=== PATIENT | male | born 1965 | race Caucasian/White ===

== ENCOUNTER 2018-02-06 06:07 | Day surgery (SDC) | payer OTHER ==
[2018-02-05 12:53] VITALS: BMI 20.2
--- NOTE | 2018-02-05 19:49 | HP ---
DATE OF ADMISSION: DATE OF SURGERY: 02/06/2018 ADMITTING DIAGNOSIS: Chronic pansinusitis with polyposis, obstructive sleep apnea. HISTORY OF PRESENT ILLNESS: This 53-year-old gentleman has had a long history of chronic sinus problems. He had chronic sinusitis with polyposis and had endoscopic sinus surgery on 10/18/2005. He did well until recently, when he developed recurrent symptoms. Presently, he is complaining of complete obstruction to breathing, worse on the left side. This began following an upper respiratory infection in June, and then in August of 2017 there was nasal drainage. Examination demonstrates significant polyposis, worse on the left side, chronic pansinusitis is seen, and he is now admitted for endoscopic sinus surgery. PAST MEDICAL HISTORY: Primary medical doctor is Dr. Jonnathan Coates. Patient has a history of sleep apnea as indicated above. PRESENT MEDICATIONS: Include fluticasone nasal spray and he also has had recent oral methylprednisolone. ALLERGIES TO MEDICATIONS: None known. He does not smoke. He has had previous sinus surgery without prior trouble. There is no other abnormal bleeding. PHYSICAL EXAMINATION: General: Patient is well developed male, in no distress . HEENT: Head is normal. Eyes are clear. Ears are unremarkable. The oral cavity and oropharynx are unremarkable. Patient had nasal endoscopy showing deviation of the septum, dense mucosa, and small polyps on the right, and a very large obstructing polyp on the left. There are polyps in the middle meati and ethmoid sinuses. There is also a polyp in the posterior choana, and sphenoethmoid recess on the left side. CT scan of paranasal sinuses performed at [facility] on December 29, 2017, shows some postoperative changes affecting the right middle turbinate. There is mild deviation to the left. Left maxillary antrum is partially opacified and so is the right. The ethmoid air cells are partially opacified as well as the sphenoid sinuses, with obstruction of the sphenoethmoid recesses. There is mild mucosal thickening in the frontal sinuses. IMPRESSION: Chronic pansinusitis with polyposis and obstruction. PLAN: Endoscopic sinus surgery to address ethmoid maxillary frontal and sphenoid sinuses under general anesthesia. INFORMED CONSENT: Patient understands the indications, alternatives, nature of risks and benefits of proposed surgery. Potential complications including but not limited to anesthesia, bleeding, infection, recurrence, numbness, reduced sense of smell , eye injury and brain injury discussed in detail. He understands and accepts these risks and wishes to proceed with surgery. Questions were answered fully. TALISHA SCHREIBER M.D. [id number] MTDD
[2018-02-06] MEDS ORDERED: BACITRACIN 15 GM TUBE TOPICAL OINTMENT ONE (07:35)
[2018-02-06] MEDS ORDERED: ROCURONIUM BROMIDE 50 MG/5 ML VIAL ONE ×2 (07:45)
[2018-02-06] MEDS ORDERED: MIDAZOLAM HCL 2 MG/2 ML SINGLE DOSE VIAL ONE (07:45)
[2018-02-06] MEDS ORDERED: fentaNYL CITRATE 250 MCG/5 ML VIAL ONE (07:45)
--- NOTE | 2018-02-06 07:55 | HP ---
History & Physical Update - History History: No Change - Physical Physical: No Change - Assessment Assessment: No Change - Plan Plan: No Change
[2018-02-06] MEDS ORDERED: COCAINE HCL 4% TOPICAL SOLUTION 4 ML BOTTLE TP ONE ×3 (08:04→08:39)
[2018-02-06] MEDS ORDERED: ceFAZolin SODIUM 1 GM VIAL IVPB ONE (08:31)
[2018-02-06] MEDS ORDERED: NEOSTIGMINE METHYLSULFATE 0.5 MG/ML - 10 ML MDV ONE (09:49)
--- NOTE | 2018-02-06 09:54 | OP ---
Operative Note - Note: Operative Date: 02/06/18 ([id number]) Pre-Operative Diagnosis: chronic pansinusitis with polyps, synechia left Operation: bilateral endoscopic: 1)ethmoidectomy, ant/post, 2)maxillary antrostomy with removal of tissue, 3)frontal sinus exploration, 4)sphenoidotomy , 5) left excision of large synechiae, 6) image guidance Findings: chronic polypoid sinusitis obstruction sphenoethmoid and frontoethmoid recesses large synechia left septum to inferior turbinate/lateral nasal wall Post-Operative Diagnosis: Same as Pre-op Surgeon: Cornell Gallagher Anesthesiologist/TOPOGRAPHY TECHNICIAN: Cornell Verduzco Anesthesia: General Estimated Blood Loss (mls): 25 Operative Report Dictated: Yes
[2018-02-06] MEDS ORDERED: oxyCODONE HCL 5 MG TABLET PO PRN ×2 (10:01→10:10)
[2018-02-06] MEDS ORDERED: TRIMETHOBENZAMIDE HCL 200MG/2ML INJ IM PRN (10:01)
[2018-02-06] MEDS ORDERED: PROMETHAZINE HCL 25 MG/1 ML VIAL IVPUSH PRN (10:10)
[2018-02-06] MEDS ORDERED: ONDANSETRON 4 MG/2 ML VIAL IVPUSH PRN (10:10)
[2018-02-06] MEDS ORDERED: LACTATED RINGERS SOLUTION 1,000 ML IV SCH (10:15)
[2018-02-06] MEDS ORDERED: ONDANSETRON 4 MG/2 ML VIAL IVPUSH ONE (10:38)
[2018-02-06] MEDS ORDERED: PROMETHAZINE HCL 25 MG/1 ML VIAL IVPUSH ONE (11:00)
--- NOTE | 2018-02-06 12:22 | OP ---
DATE OF OPERATION: 02/06/2018 PREOPERATIVE DIAGNOSIS: Chronic pansinusitis with polyps; synechia, left nasal cavity. POSTOPERATIVE DIAGNOSIS: Chronic pansinusitis with polyps; synechia, left nasal cavity. PROCEDURE: 1. Bilateral endoscopic ethmoidectomy, anterior and posterior. 2. Bilateral endoscopic maxillary antrostomy with removal of tissue. 3. Bilateral frontal sinus exploration. 4. Bilateral endoscopic sphenoidotomy. 5. Endoscopic excision of left nasal synechia. 6. Image guidance. SURGEON: Talisha Gallagher MD ANESTHESIOLOGIST: Talisha Verduzco MD/Louis Tobar CRNA ANESTHESIA: General via endotracheal tube. INDICATIONS: This is a 53-year-old gentleman who has had a long history of chronic sinusitis. He underwent previous sinus surgery many years ago with success; however, he has recently developed recurrent symptoms. He was found to have obstructing nasal polyps, left greater than right, as well as large synechia of the left nasal cavity. CT scan demonstrates chronic polypoid pansinusitis. He is now presenting for treatment. FINDINGS: Chronic sinusitis with polyps, left greater than right; obstructed sphenoethmoid recesses, obstructed frontoethmoid recesses with polyps. Large synechia, left nasal cavity. DESCRIPTION OF PROCEDURE: Patient was brought to the operating room and placed on the operating table in supine position. General endotracheal anesthesia was induced to a satisfactory level. He was prepped and draped in the usual fashion for surgery. CT scan data was utilized with the [employer] navigation system. The patient was registered and image guidance was used throughout the case to identify landmarks and guide surgical dissection. The nasal cavities were packed with cocaine 4% topically. After adequate time, these were removed. Nasal endoscopy was performed with a 0-degree telescope. The right nasal cavity was a bit narrowed. The ethmoid bed had polyps. There was obstruction of the other sinus drainage pathways. The nasopharynx had mild swelling, but no lesion. The left nasal cavity was then examined. There was a large synechia between the nasal septum and the inferior turbinate and portion of the lateral nasal wall. There was significant hypervascularity consistent with chronic inflammation in this area. Behind this, both superiorly and posteriorly, were multiple polyps with obstruction. Lidocaine 1% with epinephrine 1:200,000 epinephrine was infiltrated into the area of the synechia as well as the lateral nasal wall and the nasal septum. It was also infiltrated on the right side of the lateral nasal wall. Additional cocaine 4% was packed. The right paranasal sinuses were first addressed. The packing was removed. Polyps within the ethmoid sinus were removed utilizing the forceps and the [employer] microdebrider. Especially posteriorly there was obstruction. Image guidance was used and the lamina papyracea and fovea ethmoidalis were preserved. The sphenoethmoid recess was dissected and polypoid tissue was removed. Sphenoidotomy was recreated, and there was no lesion within the sphenoid. Attention was then turned towards the right maxillary sinus. The maxillary antrostomy was enlarged and tissue was removed. There were no irreversible lesions remaining. Finally, the right frontoethmoid recess was visualized with the 70-degree telescope. The polypoid tissue was removed with the upbiting and giraffe forceps. The frontal ostium was identified and appeared clear, and its identity was confirmed with the image guidance. Attention was then turned toward the left paranasal sinuses. The large synechia was first addressed. Because of its breadth, the [employer] microdebrider was used to carefully bring this down. Most of it was polypoid in nature, though there were a few dense areas, but it is estimated that it was at least 1.5 cm in vertical dimension and perhaps 1.5-2 cm in an anterior to posterior direction. Once this was cleared, marked improvement in the airway was noted, and full access to the ethmoid sinus was achieved. Polyps were then removed from the ethmoid sinus utilizing the upbiting forceps as well as [employer] microdebrider, again with guidance. The lamina papyracea and the fovea ethmoidalis were preserved. The sphenoethmoid recess was approached. Polypoid tissue was removed. The sphenoidotomy was enlarged with the microdebrider. Next, attention was turned toward the left maxillary sinus. This was partially obstructed with polypoid tissue which was removed. Additional polypoid tissue especially in the posteromedial sinus was removed with forceps. Finally, attention was turned toward the left frontal recess. Polypoid tissue was removed as well as some bony disease utilizing the giraffe forceps and the 70-degree telescope. The frontal ostium was exposed and appeared patent, and its identity was also confirmed with the navigation system. Final inspection demonstrated open frontal ostia, open maxillary sinuses, and open sphenoidotomies as well as no further polyps. There was improvement in the airway, especially on the left side. Suction cauterization was then utilized to control any remaining oozing. Nasopore dressings were placed in the ethmoid cavities and additional Nasopore was placed along the area of the synechia to minimize recurrence. Because of some oozing, some additional Telfa was placed in the inferior left nasal cavity. Patient tolerated the procedure well. He was then awakened from general anesthesia and transferred to the PACU in stable condition. Estimated blood loss was 25 mL. He received crystalloid during the procedure. Specimens include right ethmoid and maxillary tissue and left ethmoid maxillary tissue which was sent to pathology for routine studies. There were no complications. TALISHA GALLAGHER M.D. [id number]
[2018-02-06] MEDS: LACTATED RINGERS SOLUTION 1,000 ML IV SCH ×2 (20:30→21:24)
--- NOTE | 2018-02-07 08:25 | PN ---
Progress Note (short form) - Note Progress Note: ENT POD 1 s/p endoscopic sinus surgery overnight observation for obstructive sleep apnea syndrome had postop voiting, now well OOB, no pain or nausea VSS PE NAD eyes WNL nose: no bleeding left telfa pack removed oropharynx no bleeding Impression: doing well s/p endoscopic sinus surgery Plan: discharge home today pt ahs pain meds and antibiotics for home use already nasal saline spray daily to office next week for postop care Cornell Gallagher MD FACS
[2018-02-07 08:57] VITALS: BP 144/88; PULSE 61; TEMP 97.8
== END 2018-02-07 09:15 | disposition home or self-care (01) ==
LOC: JASUSAT 06:07 → J5S 14:25 → JASUSAT 02-07 09:15
PROVIDERS: ATTEND Otolaryngology
PROC: 09BU8ZZ Excision of Right Ethmoid Sinus, Via Natural or Artificial Opening Endoscopic (ICD-10-PCS; 2018-02-06)
PROC: 099R8ZZ Drainage of Left Maxillary Sinus, Via Natural or Artificial Opening Endoscopic (ICD-10-PCS; 2018-02-06)
PROC: 099Q8ZZ Drainage of Right Maxillary Sinus, Via Natural or Artificial Opening Endoscopic (ICD-10-PCS; 2018-02-06)
PROC: 09CX8ZZ Extirpation of Matter from Left Sphenoid Sinus, Via Natural or Artificial Opening Endoscopic (ICD-10-PCS; 2018-02-06)
PROC: 09CW8ZZ Extirpation of Matter from Right Sphenoid Sinus, Via Natural or Artificial Opening Endoscopic (ICD-10-PCS; 2018-02-06)
PROC: 09BK8ZX Excision of Nasal Mucosa and Soft Tissue, Via Natural or Artificial Opening Endoscopic, Diagnostic (ICD-10-PCS; 2018-02-06)
PROC: 09BV8ZZ Excision of Left Ethmoid Sinus, Via Natural or Artificial Opening Endoscopic (ICD-10-PCS; principal; 2018-02-06 08:00)
DX: J32.4 Chronic pansinusitis (principal); J33.8 Other polyp of sinus; J34.89 Other specified disorders of nose and nasal sinuses
CPT/HCPCS: 88304-TC; 88311-TC; 94760

== ENCOUNTER 2023-01-06 13:35 | Inpatient (IN) | payer OTHER ==
[2023-01-06 13:49] VITALS: BMI 32.7
[2023-01-06 14:52] LABS: BASO % 0.6 % (0-2.0); EOS % 1.1 % (0-4.5); HEMATOCRIT 49.4 % (35.4-49); HEMOGLOBIN 16.3 GM/dL (11.7-16.9); LYMPH % 19.6 % (8-40); MCH 28.6 pg (25.7-33.7); MEAN CELL VOLUME 86.8 fl (80-96); MEAN PLT VOLUME 9.5 fl (7.5-11.1); MONO % 6.4 % (3.8-10.2); NEUT % 72.3 % (42.8-82.8); PLATELET COUNT 277 10^3/uL (134-434); RDW 13.2 % (11.9-15.9); WHITE BLOOD COUNT 11.4 K/mm3 (4.0-10.0)
[2023-01-06 14:59] LABS: INR 1.05 (0.83-1.09); PROTHROMBIN TIME (PATIENT) 12.2 SEC (9.7-13.0)
[2023-01-06 15:02] LABS: ACTIVATED PTT 26.4 SECONDS (25.2-36.5)
[2023-01-06 15:19] LABS: CHLORIDE 102 mmol/L (98-107); POTASSIUM 4.7 mmol/L (3.5-5.1); SODIUM 139 mmol/L (136-145)
[2023-01-06 15:20] LABS: CALCIUM 9.4 mg/dL (8.5-10.1)
[2023-01-06 15:21] LABS: ALBUMIN 3.8 g/dl (3.4-5.0); ANION GAP 12 MMOL/L (8-16); BLOOD UREA NITROGEN 17.3 mg/dL (7-18); CO2 25 mmol/L (21-32)
[2023-01-06 15:25] LABS: CREATININE 1.2 mg/dL (0.55-1.3); SGOT/AST 29 U/L (15-37); SGPT/ALT 28 U/L (13-61)
[2023-01-06 15:26] LABS: BILIRUBIN,TOTAL 0.6 mg/dL (0.2-1); TOT PROT 7.6 g/dl (6.4-8.2)
[2023-01-06 15:27] LABS: ALK PHOS 113 U/L (45-117); GLUCOSE,RANDOM 428 mg/dL (74-106); LACTIC ACID 2.9 mmol/L (0.4-2.0)
[2023-01-06] MEDS ORDERED: ONDANSETRON 4 MG TABLET PO ONE (15:28)
[2023-01-06] MEDS ORDERED: ONDANSETRON 4 MG/2 ML VIAL IVPUSH ONE (15:30)
[2023-01-06] MEDS ORDERED: ONDANSETRON 4 MG/2 ML VIAL ONE (15:41)
[2023-01-06] MEDS ORDERED: LACTATED RINGERS SOLUTION 1000 ML INFUS.BAG IV ONE (16:00)
[2023-01-06] MEDS ORDERED: LABETALOL HCL 5 MG/1 ML (100MG/20 ML VIAL) IVPUSH ONE (16:03)
[2023-01-06] MEDS ORDERED: LABETALOL HCL 100 MG TABLET (FP) ONE (16:05)
[2023-01-06] MEDS ORDERED: LABETALOL HCL 20 MG/4 ML VIAL ONE (16:06)
[2023-01-06] MEDS ORDERED: PANTOPRAZOLE SODIUM 40 MG VIAL IVPUSH ONE (16:06)
[2023-01-06] MEDS ORDERED: PANTOPRAZOLE SODIUM 40 MG VIAL ONE (16:17)
[2023-01-06 16:31] LABS: VENOUS BASE EXCESS -3.5 mmol/L (-2-2); VENOUS O2 SATURATION 84.9 % (70-80); VENOUS PCO2 41.3 mmHg (38-52); VENOUS PH 7.345 (7.310-7.410)
[2023-01-06] MEDS ORDERED: hydrALAZINE HCL 20 MG/ML VIAL IVPUSH ONE (16:44)
[2023-01-06] MEDS ORDERED: amLODIPine BESYLATE 5 MG TABLET (FP) PO SCH (16:45)
[2023-01-06] MEDS ORDERED: hydrALAZINE HCL 20 MG/ML VIAL ONE (16:52)
[2023-01-06] MEDS ORDERED: amLODIPine BESYLATE 5 MG TABLET (FP) ONE (16:52)
[2023-01-06] MEDS ORDERED: PANTOPRAZOLE SODIUM 40 MG VIAL IVPUSH SCH (17:00)
[2023-01-06] MEDS: LACTATED RINGERS SOLUTION 1,000 ML/1,000 ML INFUS.BAG IV SCH (17:10)
[2023-01-06 17:54] LABS: LACTIC ACID 4.6 mmol/L (0.4-2.0)
[2023-01-06] MEDS ORDERED: hydrALAZINE HCL 20 MG/ML VIAL IVPUSH PRN ×2 (19:00→20:00)
[2023-01-06] MEDS: ONDANSETRON 4 MG/2 ML VIAL IVPUSH PRN (19:58)
[2023-01-06] MEDS: INSULIN SLIDING SCALE (NOVOLOG) 1 VIAL SQ SCH ×2 (20:50→22:02)
[2023-01-06] MEDS: amLODIPine BESYLATE 5 MG TABLET (FP) PO SCH (20:51)
[2023-01-06 21:30] LABS: URINE APPEARANCE CLEAR; URINE COLOR YELLOW
[2023-01-06 21:31] LABS: URINE BILIRUBIN NEGATIVE (NEGATIVE); URINE GLUCOSE (UA) 4+ (NEGATIVE); URINE KETONE 1+ (NEGATIVE); URINE NITRITE NEGATIVE (NEGATIVE); URINE PROTEIN NEGATIVE (NEGATIVE); URINE UROBILINOGEN 0.2 mg/dL (0.2-1.0)
[2023-01-06 21:32] LABS: URINE LEUK ESTERASE NEGATIVE (NEGATIVE)
[2023-01-06] MEDS ORDERED: INSULIN SLIDING SCALE (NOVOLOG) 1 VIAL SQ SCH ×2 (22:00)
[2023-01-06 22:43] LABS: CHOLESTEROL 189 mg/dL (50-200)
[2023-01-06 22:44] LABS: LDL CHOLESTEROL (ONLY SJRH) 119 mg/dL (5-100)
[2023-01-06 22:47] LABS: HDL CHOLESTEROL 38 mg/dL (40-60)
[2023-01-07] MEDS: INSULIN SLIDING SCALE (NOVOLOG) 1 VIAL SQ SCH ×6 (00:33→20:28)
[2023-01-07] MEDS ORDERED: INSULIN REGULAR HUMAN 100 UNITS/ML *VIAL IVPUSH ONE ×2 (00:39→02:00)
[2023-01-07] MEDS: LACTATED RINGERS SOLUTION 1,000 ML/1,000 ML INFUS.BAG IV SCH (03:27)
[2023-01-07 03:53] LABS: LACTIC ACID 4.2 mmol/L (0.4-2.0)
[2023-01-07] MEDS ORDERED: LACTATED RINGERS SOLUTION 1000 ML INFUS.BAG IV ONE (03:59)
[2023-01-07] MEDS ORDERED: INSULIN (NOVOLOG) ASPART 100 UNITS/ML 10ML VIAL SQ ONE (04:02)
[2023-01-07] MEDS: INSULIN (LEVEMIR) 100 UNITS/ML UNITS SQ SCH (06:27)
[2023-01-07] MEDS ORDERED: INSULIN (LEVEMIR) 100 UNITS/ML UNITS SQ SCH (07:00)
[2023-01-07 08:01] LABS: BASO % 0.2 % (0-2.0); HEMATOCRIT 40.4 % (35.4-49); HEMOGLOBIN 13.6 GM/dL (11.7-16.9); LYMPH % 10.2 % (8-40); MCH 29.2 pg (25.7-33.7); MCHC 33.7 g/dl (32.0-35.9); MEAN CELL VOLUME 86.8 fl (80-96); MEAN PLT VOLUME 9.9 fl (7.5-11.1); MONO % 7.9 % (3.8-10.2); NEUT % 81.7 % (42.8-82.8); PLATELET COUNT 253 10^3/uL (134-434); RBC 4.65 M/mm3 (4.00-5.60); RDW 13.1 % (11.9-15.9); WHITE BLOOD COUNT 15.9 K/mm3 (4.0-10.0)
[2023-01-07 08:18] LABS: POTASSIUM 3.6 mmol/L (3.5-5.1)
[2023-01-07 08:20] LABS: CALCIUM 9.2 mg/dL (8.5-10.1)
[2023-01-07 08:24] LABS: CREATININE 1.6 mg/dL (0.55-1.3)
[2023-01-07] MEDS: amLODIPine BESYLATE 5 MG TABLET (FP) PO SCH (09:26)
[2023-01-07] MEDS ORDERED: PANTOPRAZOLE SODIUM 40 MG VIAL IVPUSH SCH ×2 (10:00)
[2023-01-07] MEDS: SODIUM CHLORIDE 1,000 ML IV SCH (17:59)
[2023-01-07 18:13] LABS: COCAINE, UR NEGATIVE (NEGATIVE); METHADONE, UR NEGATIVE (NEGATIVE); OPIATES, URI NEGATIVE (NEGATIVE); PHENCYCLIDINE,URINE NEGATIVE (NEGATIVE); URINE AMPHETAMINES NEGATIVE (NEGATIVE); URINE BARBITURATES NEGATIVE (NEGATIVE)
[2023-01-07 18:18] LABS: URINE BENZODIAZEPINES NEGATIVE (NEGATIVE)
[2023-01-07 19:17] LABS: BASO % 0.4 % (0-2.0); EOS % 0.2 % (0-4.5); HEMATOCRIT 41.1 % (35.4-49); HEMOGLOBIN 13.5 GM/dL (11.7-16.9); LYMPH % 11.2 % (8-40); MCH 28.7 pg (25.7-33.7); MCHC 32.9 g/dl (32.0-35.9); MEAN CELL VOLUME 87.3 fl (80-96); MEAN PLT VOLUME 9.3 fl (7.5-11.1); MONO % 5.7 % (3.8-10.2); NEUT % 82.5 % (42.8-82.8); PLATELET COUNT 235 10^3/uL (134-434); RBC 4.71 M/mm3 (4.00-5.60); RDW 13.1 % (11.9-15.9); WHITE BLOOD COUNT 17.1 K/mm3 (4.0-10.0)
[2023-01-08] MEDS: INSULIN SLIDING SCALE (NOVOLOG) 1 VIAL SQ SCH ×6 (01:21→21:33)
[2023-01-08] MEDS: SIMETHICONE 80 MG TAB.CHEW (FP) PO PRN ×4 (02:55→19:41)
[2023-01-08] MEDS: ACETAMINOPHEN 1000 MG/100 ML BAG IVPB PRN ×2 (02:56→05:52)
[2023-01-08] MEDS: INSULIN (LEVEMIR) 100 UNITS/ML UNITS SQ SCH ×2 (06:04→21:32)
[2023-01-08 07:30] LABS: BASO % 0.3 % (0-2.0); EOS % 0.3 % (0-4.5); HEMATOCRIT 39.9 % (35.4-49); HEMOGLOBIN 13.4 GM/dL (11.7-16.9); LYMPH % 13.2 % (8-40); MCH 29.3 pg (25.7-33.7); MCHC 33.6 g/dl (32.0-35.9); MEAN CELL VOLUME 87.1 fl (80-96); MEAN PLT VOLUME 9.8 fl (7.5-11.1); MONO % 6.2 % (3.8-10.2); PLATELET COUNT 207 10^3/uL (134-434); RBC 4.58 M/mm3 (4.00-5.60); WHITE BLOOD COUNT 13.5 K/mm3 (4.0-10.0)
[2023-01-08 07:46] LABS: POTASSIUM 3.6 mmol/L (3.5-5.1)
[2023-01-08 07:58] LABS: CALCIUM 8.6 mg/dL (8.5-10.1)
[2023-01-08 07:59] LABS: BLOOD UREA NITROGEN 26.9 mg/dL (7-18)
[2023-01-08 08:01] LABS: BILIRUBIN,TOTAL 0.5 mg/dL (0.2-1)
[2023-01-08] MEDS: amLODIPine BESYLATE 5 MG TABLET (FP) PO SCH ×2 (08:57→09:02)
[2023-01-08] MEDS: SODIUM CHLORIDE 1,000 ML IV SCH (08:57)
[2023-01-08] MEDS: LISINOPRIL 20 MG TABLET PO SCH ×2 (08:57→09:02)
[2023-01-08] MEDS: FAMOTIDINE 10 MG TABLET PO SCH (09:15)
[2023-01-08] MEDS ORDERED: LISINOPRIL 5 MG TABLET PO SCH (10:00)
[2023-01-08] MEDS ORDERED: MAG HYDROX/AL HYDROX/SIMETH 30 ML UNIT-DOSE CUP PO ONE (18:03)
[2023-01-09] MEDS: ONDANSETRON 4 MG/2 ML VIAL IVPUSH PRN (00:45)
[2023-01-09] MEDS ORDERED: MAG HYDROX/AL HYDROX/SIMETH 30 ML UNIT-DOSE CUP PO ONE (02:07)
[2023-01-09] MEDS ORDERED: METOCLOPRAMIDE HCL INJECTION 10 MG/2 ML VIAL IVPUSH ONE (02:07)
[2023-01-09] MEDS: INSULIN (LEVEMIR) 100 UNITS/ML UNITS SQ SCH ×2 (06:03→22:01)
[2023-01-09] MEDS: INSULIN SLIDING SCALE (NOVOLOG) 1 VIAL SQ SCH ×4 (06:04→22:00)
[2023-01-09] MEDS: SIMETHICONE 80 MG TAB.CHEW (FP) PO PRN ×3 (06:05→20:28)
[2023-01-09 08:42] LABS: HEMATOCRIT 41.1 % (35.4-49); MCH 29.2 pg (25.7-33.7); MEAN CELL VOLUME 85.8 fl (80-96); RBC 4.79 M/mm3 (4.00-5.60); RDW 13.3 % (11.9-15.9); WHITE BLOOD COUNT 13.1 K/mm3 (4.0-10.0)
[2023-01-09 08:44] LABS: MEAN PLT VOLUME 9.9 fl (7.5-11.1); PLATELET COUNT 189 10^3/uL (134-434)
[2023-01-09] MEDS: LISINOPRIL 20 MG TABLET PO SCH (09:44)
[2023-01-09] MEDS: FAMOTIDINE 10 MG TABLET PO SCH (09:44)
[2023-01-09] MEDS: amLODIPine BESYLATE 10 MG TABLET (FP) PO SCH (09:45)
[2023-01-09] MEDS: SODIUM CHLORIDE 0.45% 1,000 ML IV SCH (20:25)
[2023-01-10] MEDS: SIMETHICONE 80 MG TAB.CHEW (FP) PO PRN ×2 (00:31→21:45)
[2023-01-10] MEDS ORDERED: METOCLOPRAMIDE HCL INJECTION 10 MG/2 ML VIAL IVPUSH PRN (01:35)
[2023-01-10] MEDS: ACETAMINOPHEN 325 MG TABLET (FP) PO PRN ×2 (02:21→21:44)
[2023-01-10] MEDS: INSULIN SLIDING SCALE (NOVOLOG) 1 VIAL SQ SCH ×4 (06:18→21:51)
[2023-01-10] MEDS: INSULIN (LEVEMIR) 100 UNITS/ML UNITS SQ SCH ×2 (06:18→21:49)
[2023-01-10] MEDS: FAMOTIDINE 10 MG TABLET PO SCH (09:13)
[2023-01-10] MEDS: amLODIPine BESYLATE 10 MG TABLET (FP) PO SCH (09:13)
[2023-01-10] MEDS: LISINOPRIL 20 MG TABLET PO SCH (09:13)
[2023-01-10] MEDS: SODIUM CHLORIDE 0.45% 1,000 ML IV SCH ×2 (12:33→20:56)
[2023-01-10] MEDS ORDERED: chlorproMAZINE HCL 25 MG TABLET PO ONE ×2 (14:49→21:01)
[2023-01-11] MEDS: INSULIN (LEVEMIR) 100 UNITS/ML UNITS SQ SCH ×2 (06:04→21:10)
[2023-01-11] MEDS: INSULIN SLIDING SCALE (NOVOLOG) 1 VIAL SQ SCH ×4 (06:05→21:10)
[2023-01-11] MEDS: LISINOPRIL 20 MG TABLET PO SCH (09:34)
[2023-01-11] MEDS: FAMOTIDINE 10 MG TABLET PO SCH (09:34)
[2023-01-11] MEDS: amLODIPine BESYLATE 10 MG TABLET (FP) PO SCH (09:34)
[2023-01-11] MEDS ORDERED: chlorproMAZINE HCL 25 MG TABLET PO ONE ×2 (17:00→19:13)
[2023-01-11] MEDS: SIMETHICONE 80 MG TAB.CHEW (FP) PO PRN (20:10)
[2023-01-11] MEDS: ACETAMINOPHEN 325 MG TABLET (FP) PO PRN (20:10)
[2023-01-12] MEDS: SIMETHICONE 80 MG TAB.CHEW (FP) PO PRN ×2 (00:28→06:13)
[2023-01-12] MEDS: ONDANSETRON 4 MG/2 ML VIAL IVPUSH PRN (00:28)
[2023-01-12] MEDS: INSULIN (LEVEMIR) 100 UNITS/ML UNITS SQ SCH ×2 (06:07→21:52)
[2023-01-12] MEDS: INSULIN SLIDING SCALE (NOVOLOG) 1 VIAL SQ SCH ×4 (06:13→21:51)
[2023-01-12] MEDS: LISINOPRIL 20 MG TABLET PO SCH (09:55)
[2023-01-12] MEDS: FAMOTIDINE 10 MG TABLET PO SCH (09:55)
[2023-01-12] MEDS: amLODIPine BESYLATE 10 MG TABLET (FP) PO SCH (09:55)
[2023-01-12] MEDS ORDERED: chlorproMAZINE HCL 25 MG TABLET PO ONE (11:33)
[2023-01-12] MEDS ORDERED: chlorproMAZINE HCL 25 MG TABLET PO PRN (11:46)
[2023-01-13] MEDS: chlorproMAZINE HCL 25 MG TABLET PO PRN ×2 (01:37→11:18)
[2023-01-13 06:13] VITALS: PULSE 75; RESP 17
[2023-01-13] MEDS: INSULIN SLIDING SCALE (NOVOLOG) 1 VIAL SQ SCH ×2 (06:40→11:17)
[2023-01-13] MEDS: INSULIN (LEVEMIR) 100 UNITS/ML UNITS SQ SCH (06:41)
[2023-01-13 09:15] VITALS: BP 152/88; TEMP 98.7
[2023-01-13] MEDS: FAMOTIDINE 10 MG TABLET PO SCH (09:15)
[2023-01-13] MEDS: amLODIPine BESYLATE 10 MG TABLET (FP) PO SCH (09:15)
[2023-01-13] MEDS: LISINOPRIL 20 MG TABLET PO SCH (09:15)
== END 2023-01-13 13:10 | DRG 638 ==
LOC: JER 13:35 → JERBED 16:13 → J4S 18:52
PROVIDERS: ADMIT Internal Medicine; ATTEND Internal Medicine
DX: E11.65 Type 2 diabetes mellitus with hyperglycemia (principal); E87.20 Acidosis, unspecified; I16.1 Hypertensive emergency; I16.0 Hypertensive urgency; E66.9 Obesity, unspecified; Z68.32 Body mass index [BMI] 32.0-32.9, adult; R26.89 Other abnormalities of gait and mobility; D72.829 Elevated white blood cell count, unspecified; H53.2 Diplopia
CPT/HCPCS: 36415; 70450-TC; 70496-TC; 70498-TC; 70551-TC; 71045-TC-FY; 71260-TC; 74177-TC; 80048; 80053; 80061; 80307; 81003; 82010; 82803; 82962; 83036; 83605; 83735; 84132; 84484; 85025; 85027; 85610; 85730; 86850; 86900; 86901; 87086; 87635; 93005; 93010; 93306-TC; 93880-TC; 97116-GP; 97162-GP; 99285-25